=== PATIENT | female | born 1975 ===

== ENCOUNTER 2018-03-31 11:10 | Outpatient (CLI) | payer OTHER | END 2018-03-31 11:26 | disposition home or self-care (01) | LOC: MAMO-SONO 11:10 | DX: Z12.31 Encounter for screening mammogram for malignant neoplasm of breast (principal); N64.4 Mastodynia ==

== ENCOUNTER 2019-07-13 09:08 | Outpatient (CLI) | payer OTHER | END 2019-07-13 09:16 | disposition home or self-care (01) | LOC: SONOGRAMA 09:08 → MAMO-SONO 10:15 | DX: R31.29 Other microscopic hematuria (principal) ==

== ENCOUNTER 2019-12-28 12:21 | Outpatient (CLI) | payer OTHER | END 2019-12-28 12:30 | disposition home or self-care (01) | LOC: RAD 12:21 | DX: M62.838 Other muscle spasm (principal); M54.5 Low back pain ==

== ENCOUNTER 2020-03-12 08:14 | Outpatient (CLI) | payer OTHER | END 2020-03-12 08:27 | disposition home or self-care (01) | LOC: MAMO-SONO 08:14 | PROVIDERS: ATTEND Obstetrics & Gynecology Gynecology | DX: Z12.31 Encounter for screening mammogram for malignant neoplasm of breast (principal); N64.4 Mastodynia ==

== ENCOUNTER 2020-03-16 12:28 | Outpatient (CLI) | payer OTHER | END 2020-03-16 12:55 | disposition home or self-care (01) | LOC: NUCLEAR 12:28 | PROVIDERS: ATTEND Internal Medicine Endocrinology, Diabetes & Metabolism | DX: M19.249 Secondary osteoarthritis, unspecified hand (principal); M06.4 Inflammatory polyarthropathy; M81.8 Other osteoporosis without current pathological fracture ==

== ENCOUNTER 2021-06-26 09:53 | Outpatient (CLI) | payer OTHER | END 2021-06-26 10:06 | disposition home or self-care (01) | LOC: MAMO-SONO 09:53 | PROVIDERS: ATTEND Internal Medicine Endocrinology, Diabetes & Metabolism | DX: N64.59 Other signs and symptoms in breast (principal); Z12.31 Encounter for screening mammogram for malignant neoplasm of breast ==

== ENCOUNTER → 2021-07-02 | Outpatient (CLI) | payer OTHER | END | disposition home or self-care (01) | LOC: SONOGRAMA 08:10 | PROVIDERS: ATTEND Internal Medicine Endocrinology, Diabetes & Metabolism | DX: N64.59 Other signs and symptoms in breast (principal) ==

== ENCOUNTER 2023-01-20 09:31 | Outpatient (CLI) | payer OTHER | END 2023-01-20 11:12 | disposition home or self-care (01) | LOC: MAMO-SONO 09:31 | PROVIDERS: ATTEND Obstetrics & Gynecology Gynecology | DX: Z12.31 Encounter for screening mammogram for malignant neoplasm of breast (principal); N64.4 Mastodynia ==